=== PATIENT | female | born 1995 | race African-American/Black ===

== ENCOUNTER 2021-10-11 18:03 | Emergency (ER) | payer OTHER ==
[~2021-10-11] VITALS: Ht 162.6 cm; Wt 59.0 kg
[2021-10-11] MEDS ORDERED: FLOVENT DISKU100 MCG (18:17)
[2021-10-11] MEDS ORDERED: AUGMENTIN 875-1 EACH PO (18:39)
[2021-10-11] MEDS ORDERED: IBUPROFEN IB200 MG PO (18:39)
[2021-10-11] MEDS ORDERED: MUPIROCIN 2% OINT 22 GM TUBE TOP ONE (18:45)
[2021-10-11] MEDS ORDERED: BACITRACIN ZINC 0.9GM TP ONE (18:55)
== END 2021-10-11 19:00 | disposition home or self-care (01) ==
LOC: FSED 18:07
DX: S81.051A Open bite, right knee, initial encounter (principal); W54.0XXA Bitten by dog, initial encounter; Y92.098 Other place in other non-institutional residence as the place of occurrence of the external cause
CPT/HCPCS: 99283